=== PATIENT | female | born 1960 | race Caucasian/White ===

== ENCOUNTER 2022-08-09 16:47 | Inpatient (IN) | payer MEDICARE, MEDICAID ==
[~2022-08-09] VITALS: Ht 167.6 cm; Wt 83.5 kg
[2022-08-09 17:45] LABS: BASOPHILS % 0.8 % (0.0-2.0); EOSINOPHILS % 1.6 % (0.0-5.0); HEMOGLOBIN. 12.9 g/dL (12.0-16.0); LYMPHOCYTES % 33.8 % (20.0-50.0); MEAN CORPUSCULAR HEMOGLOBIN 30.4 pg (28.0-32.0); MEAN CORPUSCULAR VOLUME 89.3 fL (81.0-99.0); MEAN PLATELET VOLUME 8.6 fl (7.4-10.4); MONOCYTES % 8.6 % (2.0-8.0); NEUTROPHILS % 55.2 % (40.0-76.0); PLATELET 190 x1000/uL (130-400); RED BLOOD CELL COUNT 4.26 mill/uL (4.2-5.4)
[2022-08-09] MEDS ORDERED: HALOPERIDOL LACTATE 5MG/ML VIAL IM ONE (17:45)
[2022-08-09] MEDS ORDERED: LORAZEPAM 2MG/ML CPJ IM ONE (17:45)
[2022-08-09] MEDS ORDERED: LORAZEPAM 2MG/ML CPJ IM PRN (17:45)
[2022-08-09 17:50] LABS: PROTHROMBIN TIME 10.4 sec (9.6-11.0)
[2022-08-09 18:28] LABS: CHLORIDE 110 mEq/L (98-107)
[2022-08-09] MEDS ORDERED: DIPHENHYDRAMINE 50MG/ML VIAL IM ONE (18:30)
[2022-08-09 18:44] LABS: ETHANOL BLOOD < 10 mg/dL
[2022-08-09 20:09] LABS: T4 FREE 0.52 ng/dL (0.76-1.46)
[2022-08-09 20:21] LABS: CARBAMAZEPINE < 0.5 ug/mL (4-12)
[2022-08-09] MEDS ORDERED: LEVOTHYROXINE SODIUM 100 MCG/ VIAL IV NR (21:45)
[2022-08-10] MEDS ORDERED: HALOPERIDOL LACTATE 5MG/ML VIAL IM PRN (10:00)
[2022-08-10] MEDS ORDERED: ONDANSETRON HCL 4MG/2ML INJ IV PRN (10:00)
[2022-08-10] MEDS ORDERED: ACETAMINOPHEN 325MG TABLET PO PRN (10:00)
[2022-08-10 12:35] LABS: CLARITY URINE CLEAR (CLEAR); COLOR URINE YELLOW (YELLOW); KETONES URINE NEGATIVE (NEGATIVE); LEUKOCYTE ESTERASE URINE NEGATIVE (NEGATIVE); NITRITE URINE NEGATIVE (NEGATIVE); OCCULT BLOOD URINE NEGATIVE (NEGATIVE); PROTEIN URINE NEGATIVE (NEGATIVE); UROBILINOGEN URINE 0.2 E.U./dL (0.2-1.0)
[2022-08-10 13:41] LABS: *AMPHETAMINES SCREEN URINE NEGATIVE (NEGATIVE); *BARBITURATES SCREEN URINE NEGATIVE (NEGATIVE); *BENZODIAZEPINES SCREEN URINE NEGATIVE (NEGATIVE); *COCAINE SCREEN URINE NEGATIVE (NEGATIVE); CANNABINOID URINE SCREEN NEGATIVE (NEGATIVE); METHADONE URINE SCREEN NEGATIVE (NEGATIVE); OPIATES URINE SCREEN NEGATIVE (NEGATIVE); PHENCYCLIDINE URINE SCREEN NEGATIVE (NEGATIVE)
[2022-08-11] MEDS ORDERED: LEVOTHYROXINE SODIUM 50MCG TABLET PO SCH (06:30)
[2022-08-11] MEDS ORDERED: LEVOTHYROXINE SODIUM 100 MCG/ VIAL IV SCH (11:00)
[2022-08-11 15:02] VITALS: BP 130/81
[2022-08-11 16:57] VITALS: BP 128/79
[2022-08-12] MEDS ORDERED: LEVOTHYROXINE SODIUM 100 MCG/ VIAL IV SCH (09:00)
== END 2022-08-11 17:36 | DRG 885 ==
LOC: ER 16:47 → MICUSO 22:01 → EDBEDREQTM 22:07 → EDBEDREQ 22:07 → 6EST 08-11 11:03
PROVIDERS: ADMIT Internal Medicine; ATTEND Internal Medicine
DX: F25.0 Schizoaffective disorder, bipolar type (principal); E03.9 Hypothyroidism, unspecified; Z20.822 Contact with and (suspected) exposure to COVID-19; I83.93 Asymptomatic varicose veins of bilateral lower extremities; L84 Corns and callosities; Z88.8 Allergy status to other drugs, medicaments and biological substances; Z83.3 Family history of diabetes mellitus; Z80.9 Family history of malignant neoplasm, unspecified
CPT/HCPCS: 36415; 80048; 80053; 80061; 80156; 80165; 80178; 80184; 80305; 80307; 80320; 80329; 81003; 82140; 82533; 84439; 84443; 84481; 85025; 86376; 87426; 99291; J1200; J1630; J2060; J3490; G0480